=== PATIENT | male | born 1950 | race Caucasian/White ===

== ENCOUNTER 2018-07-14 08:58 | Inpatient (IN) ==
[2018-07-14] MEDS ORDERED: ONDANSETRON 4 MG/2 ML VIAL IV PRN (10:19)
[2018-07-14] MEDS ORDERED: ACETAMINOPHEN 325 MG TABLET PO PRN (10:19)
[2018-07-14] MEDS ORDERED: GLUCAGON 1 MG VIAL IM PRN (10:19)
[2018-07-14] MEDS ORDERED: DEXTROSE 50% 25 GM/50 ML VIAL IV PRN (10:19)
[2018-07-14] MEDS ORDERED: SODIUM CHLORIDE 0.45% 1,000 ML IV SCH (10:30)
[2018-07-14 10:41] LABS: Basophils # 0.1 10*3/uL (0.0-0.2); Basophils % 0.6 % (0.0-0.8); Eosinophils # 1.4 10*3/uL (0.0-0.87); Eosinophils % 15.2 % (0.00-10.9); Hemoglobin 15.4 GM/DL (14.0-18.0); Immature Granulocytes % 0.4 %; Immature Granulocytes Absolute 0.04 #; Lymphocytes # 1.3 10*3/uL (1.4-4.0); Mean Corpuscular HGB Conc 34.2 GM/DL (32-36); Mean Corpuscular Hemoglobin 33 PG (27-34); Mean Corpuscular Volume 95.7 FL (87-102); Mean Platelet Volume 10.6 FL (9.6-12.0); Monocytes # 0.7 10*3/uL (0.11-0.8); Monocytes % 6.9 % (1.7-12.7); Neutrophils # 5.9 10*3/uL (1.4-7.4); Neutrophils % 62.9 % (38.7-73.9); Platelet Count 216 T/CUMM (130-400); Red Cell Distribution Width 12.8 % (9.3-17.3); White Blood Count 9.4 T/CUMM (4-12)
[2018-07-14 11:01] LABS: Eosinophils 10 % (0-10); Lymphocytes 19 % (20-55); Segmented Neutrophils 63 % (50-85); Total Cells Counted 100
[2018-07-14 11:02] LABS: Microcytosis 1+; Ovalocytes Slight; Platelet Estimate Normal
[2018-07-14 11:20] LABS: Albumin 4.1 G/DL (3.4-5.0); Bilirubin,Total 0.6 MG/DL (0.2-1.0); Calcium 9.3 MG/DL (8.5-10.1); Osmolality,Calculated 276.7 MOS/KG (273-304); Potassium 4.1 MMOL/L (3.5-5.1); Total Protein 7.1 G/DL (6.4-8.3)
[2018-07-14] MEDS: INSULIN LISPRO 100 UNIT/ML SUBCUT SCH ×3 (11:20→21:47)
[2018-07-14] MEDS: DOXYCYCLINE HYCLATE 100 MG CAPSULE PO SCH ×2 (11:21→21:47)
[2018-07-14] MEDS: ALBUTEROL/IPRATROPIUM 3 ML NEB RESP TX SCH ×4 (11:40→23:02)
[2018-07-14] MEDS ORDERED: methylPREDNISolone SOD SUC 125 MG/2 ML VIAL IV ONE (12:00)
[2018-07-14] MEDS: methylPREDNISolone SOD SUC 40 MG/1 ML VIAL IV SCH (21:45)
[2018-07-14] MEDS: ZALEPLON 5 MG CAPSULE PO PRN (23:42)
[2018-07-15] MEDS: ALBUTEROL/IPRATROPIUM 3 ML NEB RESP TX SCH ×5 (03:45→21:10)
[2018-07-15 06:53] LABS: Basophils % 0.1 % (0.0-0.8); Hematocrit 45.8 VOL% (42.0-52.0); Hemoglobin 15.5 GM/DL (14.0-18.0); Immature Granulocytes % 0.5 %; Immature Granulocytes Absolute 0.08 #; Lymphocytes # 0.6 10*3/uL (1.4-4.0); Lymphocytes % 3.7 % (21.2-54.2); Mean Corpuscular HGB Conc 33.8 GM/DL (32-36); Mean Corpuscular Hemoglobin 32 PG (27-34); Mean Corpuscular Volume 95.8 FL (87-102); Mean Platelet Volume 10.9 FL (9.6-12.0); Monocytes # 0.3 10*3/uL (0.11-0.8); Monocytes % 1.6 % (1.7-12.7); Neutrophils # 14.6 10*3/uL (1.4-7.4); Neutrophils % 94.1 % (38.7-73.9); Platelet Count 242 T/CUMM (130-400); Red Blood Count 4.78 MC/CUMM (3.8-5.5); Red Cell Distribution Width 12.7 % (9.3-17.3); White Blood Count 15.6 T/CUMM (4-12)
[2018-07-15 07:15] LABS: Lymphocytes 2 % (20-55); Platelet Estimate Adequate; Segmented Neutrophils 97 % (50-85); Total Cells Counted 100
[2018-07-15 07:16] LABS: Hypochromasia 1+; Microcytosis Slight
[2018-07-15 07:21] LABS: Calcium 9.2 MG/DL (8.5-10.1); Osmolality,Calculated 281.8 MOS/KG (273-304); Potassium 3.7 MMOL/L (3.5-5.1)
[2018-07-15] MEDS: INSULIN LISPRO 100 UNIT/ML SUBCUT SCH ×4 (07:26→20:39)
[2018-07-15] MEDS: DOXYCYCLINE HYCLATE 100 MG CAPSULE PO SCH ×2 (09:10→22:12)
[2018-07-15] MEDS: methylPREDNISolone SOD SUC 40 MG/1 ML VIAL IV SCH ×2 (09:10→21:55)
[2018-07-15] MEDS: FLUTICASONE 50 MCG NASAL SPRAY 16 GM BOTTLE BOTH NARES SCH (09:55)
[2018-07-15] MEDS: ASPIRIN CHEW 81 MG TABLET PO SCH (09:55)
[2018-07-15] MEDS: amLODIPine 5 MG TABLET PO SCH (09:55)
[2018-07-15] MEDS: hydroCHLOROthiazide 12.5 MG CAPSULE PO SCH (09:55)
[2018-07-15] MEDS: ROSUVASTATIN 20 MG TABLET PO SCH (10:11)
[2018-07-15] MEDS: guaiFENesin/CODEINE 5 ML LIQUID PO PRN (11:09)
[2018-07-15] MEDS: MONTELUKAST 10 MG TABLET PO SCH ×2 (13:43→22:12)
[2018-07-15] MEDS ORDERED: MELOXICAM 7.5 MG TABLET PO SCH (21:00)
[2018-07-15] MEDS ORDERED: ROSUVASTATIN 20 MG TABLET PO SCH (21:00)
[2018-07-15] MEDS: ZALEPLON 5 MG CAPSULE PO PRN (22:13)
[2018-07-16] MEDS: ALBUTEROL/IPRATROPIUM 3 ML NEB RESP TX SCH ×7 (00:21→23:21)
[2018-07-16] MEDS: methylPREDNISolone SOD SUC 40 MG/1 ML VIAL IV SCH ×3 (08:36→23:06)
[2018-07-16] MEDS: MONTELUKAST 10 MG TABLET PO SCH ×2 (08:37→21:34)
[2018-07-16] MEDS: ROSUVASTATIN 20 MG TABLET PO SCH (08:37)
[2018-07-16] MEDS: DOXYCYCLINE HYCLATE 100 MG CAPSULE PO SCH ×2 (08:37→21:34)
[2018-07-16] MEDS: ASPIRIN CHEW 81 MG TABLET PO SCH (08:37)
[2018-07-16] MEDS: FLUTICASONE 50 MCG NASAL SPRAY 16 GM BOTTLE BOTH NARES SCH (08:37)
[2018-07-16] MEDS: amLODIPine 5 MG TABLET PO SCH (08:37)
[2018-07-16] MEDS: INSULIN LISPRO 100 UNIT/ML SUBCUT SCH ×4 (08:38→21:32)
[2018-07-16] MEDS: hydroCHLOROthiazide 12.5 MG CAPSULE PO SCH (08:38)
[2018-07-16] MEDS: guaiFENesin/CODEINE 5 ML LIQUID PO PRN (08:48)
[2018-07-16] MEDS: BENZONATATE 100 MG CAPSULE PO SCH ×2 (12:56→21:33)
[2018-07-16] MEDS: DORNASE ALFA 2.5 MG/2.5 ML VIAL RESP TX SCH ×2 (14:10→19:14)
[2018-07-16] MEDS: BUDESONIDE/FORMOTEROL 160-4.5 INHALER 6 GM INH SCH (21:35)
[2018-07-16] MEDS: ZALEPLON 5 MG CAPSULE PO PRN (23:05)
[2018-07-17] MEDS: ALBUTEROL/IPRATROPIUM 3 ML NEB RESP TX SCH ×3 (03:36→10:53)
[2018-07-17 05:41] LABS: Basophils % 0.1 % (0.0-0.8); Hematocrit 44.1 VOL% (42.0-52.0); Hemoglobin 14.9 GM/DL (14.0-18.0); Immature Granulocytes % 0.9 %; Immature Granulocytes Absolute 0.15 #; Lymphocytes # 0.4 10*3/uL (1.4-4.0); Lymphocytes % 2.4 % (21.2-54.2); Mean Corpuscular HGB Conc 33.8 GM/DL (32-36); Mean Corpuscular Hemoglobin 33 PG (27-34); Mean Corpuscular Volume 96.7 FL (87-102); Mean Platelet Volume 11.1 FL (9.6-12.0); Monocytes # 0.5 10*3/uL (0.11-0.8); Monocytes % 2.9 % (1.7-12.7); Neutrophils # 16.1 10*3/uL (1.4-7.4); Neutrophils % 93.7 % (38.7-73.9); Platelet Count 226 T/CUMM (130-400); Red Blood Count 4.56 MC/CUMM (3.8-5.5); Red Cell Distribution Width 13.1 % (9.3-17.3); White Blood Count 17.2 T/CUMM (4-12)
[2018-07-17 06:00] LABS: Lymphocytes 1 % (20-55); Platelet Estimate Adequate; Segmented Neutrophils 95 % (50-85); Total Cells Counted 100
[2018-07-17 06:01] LABS: Hypochromasia 1+; Microcytosis Slight
[2018-07-17] MEDS: DORNASE ALFA 2.5 MG/2.5 ML VIAL RESP TX SCH (07:03)
[2018-07-17] MEDS: BUDESONIDE/FORMOTEROL 160-4.5 INHALER 6 GM INH SCH (08:34)
[2018-07-17] MEDS: ROSUVASTATIN 20 MG TABLET PO SCH (08:35)
[2018-07-17] MEDS: DOXYCYCLINE HYCLATE 100 MG CAPSULE PO SCH (08:35)
[2018-07-17] MEDS: INSULIN LISPRO 100 UNIT/ML SUBCUT SCH (08:35)
[2018-07-17] MEDS: amLODIPine 5 MG TABLET PO SCH (08:35)
[2018-07-17] MEDS: MONTELUKAST 10 MG TABLET PO SCH (08:35)
[2018-07-17] MEDS: hydroCHLOROthiazide 12.5 MG CAPSULE PO SCH (08:35)
[2018-07-17] MEDS: BENZONATATE 100 MG CAPSULE PO SCH (08:35)
[2018-07-17] MEDS: ASPIRIN CHEW 81 MG TABLET PO SCH (08:35)
[2018-07-17] MEDS: methylPREDNISolone SOD SUC 40 MG/1 ML VIAL IV SCH (08:36)
[2018-07-17 11:33] VITALS: BP 139/82
== END 2018-07-17 12:02 | disposition home or self-care (01) | DRG 191 ==
LOC: INTOOBSV 09:42 → N.2E 09:42 → SUATTDRO 09:42
PROVIDERS: ADMIT Internal Medicine; ATTEND Internal Medicine